=== PATIENT | female | born 1970 | race Two or more races ===

== ENCOUNTER 2024-07-22 17:09 | Emergency (ER) | payer MEDICARE, OTHER, MEDICAID ==
[~2024-07-22] VITALS: Ht 154.9 cm; Wt 62.5 kg
[2024-07-22 18:47] VITALS: BP 101/72; PULSE 80; RESP 18; TEMP 97.9; O2SAT 95
[2024-07-22] MEDS ORDERED: FAMC500T12 PO (19:14)
--- NOTE | 2024-07-22 19:14 | ED.PDOC ---
History of Present Illness(SKN HPI Comments 54 year old female presents to ER for wound check. Patient states she was tested for and diagnosed with "herpes to lips" 1.5 months ago and was prescribed valacyclovir that she has taken with improvement but reports that she still has one blister to her lower lip prompting her to come to ER for further evaluation. Notes that she does have an appointment with her PCP this upcoming Saturday with regards to her symptoms. She reports 5/10 pain localized to lower lip and denies exposure to STDs, noting she has not been sexually active in "10 years". Denies fever, body aches, chills, drainage, headache, fatigue or any further symptoms/complaints Chief Complaint: Rash Time Seen by MD: 18:07 Primary Care Provider: UNKNOWN History of Present Illness: Nurses Notes, Medications, Allergies Allergies: Coded Allergies: Penicillins (Verified Allergy, Unknown, 07/22/24) Sulfa Antibiotics (Verified Allergy, Unknown, 07/22/24) Home Meds Active Scripts Famciclovir (Famciclovir) 500 Mg Tab, 500 MG PO BID for 7 Days, #14 TAB 0 Refills Prov:VALENTINA LIM 07/22/24 Information Source: Patient Mode of Arrival: Ambulatory Past Medical History PAST MEDICAL HISTORY: Arthritis (RA), HTN Surgical History: Appendectomy Surgical History (Other): GASTRIC BYPASS PIER RUNNER History: No Pertinent PIER RUNNER History Family History Family History: Unknown Social History Smoker: Non-Smoker Alcohol: Denies ETOH Use Drugs: Denies Drug Use Lives In: Home Constitutional: denies: chills, diaphoresis, fatigue, fever, malaise, sweats, weakness, others EENTM: reports: others (As stated in HPI) Respiratory: denies: cough, hemoptysis, orthopnea, SOB at rest, shortness of breath, SOB with excertion, stridor, wheezing, others Cardiovascular: denies: chest pain, dizzy spells, diaphoresis, Dyspnea on exertion, edema, irregular heart beat, left arm pain, lightheadedness, palpitations, PND, syncope, others Gastrointestinal: denies: abdomen distended, abdominal pain, blood streaked bowels, constipated, diarrhea, dysphagia, difficulty swallowing, hematemesis, melena, nausea, poor appetite, poor fluid intake, rectal bleeding, rectal pain, vomiting, others Genitourinary: denies: abnormal vagina bleeding, burning, dyspareunia, dysuria, flank pain, frequency, hematuria, incontinence, pain, , vagina discharge, urgency, others Neurological: denies: dizziness, fainting, headache, left sided numbness, left sided weakness, numbness, paresthesia, pre-existing deficit, right sided numbness, right sided weakness, seizure, speech problems, tingling, tremors, weakness, others Musculoskeletal: denies: back pain, gout, joint pain, joint swelling, muscle pain, muscle stiffness, neck pain, others Integumetry: reports: others (As stated in HPI) Allergic/Immunocompromised: denies: Difficulty Healing, Frequent Infections, Hives, Itching, others Hematologic/Lymphatic: denies: anemia, blood clots, easy bleeding, easy bruising, swollen glands, others Endocrine: denies: excessive hunger, excessive sweating, excessive thirst, excessive urination, flushing, intolerance to cold, intolerance to heat, unexplained weight gain, unexplained weight loss, others Psychiatric: denies: anxiety, bipolar disorder, depression, hopeless, panic disorder, schizophrenia, sleepless, suicidal, others Physical Exam General Appearance: No Apparent Distress HEENT: Normal ENT Inspection, PERRL/EOMI, Pharynx Normal, TMs Normal, Other (1 cm tender umbilicated vesicle with minimal surrounding erythema noted to lower lip without drainage) Neck: Full Range of Motion, Non-Tender, Normal Respiratory: Chest Non-Tender, Lungs Clear, No Accessory Muscle Use, No Respiratory Distress, Normal Breath Sounds Cardiovascular: No Murmur, No Gallop, Regular Rate/Rhythm Breast Exam: Deferred Gastrointestinal: NOT DONE Genitalia: Deferred Pelvic: Deferred Rectal: Deferred Extremities: Normal capillary refill, Normal range of motion Neurologic: Alert, health and safety technician II-XII nml as Tested, No Motor Deficits, Normal Affect, Normal Mood, No Sensory Deficits Cerebellar Function: Normal Reflexes: Normal Skin: Dry, Warm Lymphatic: No Adenopathy Was a procedure done? Was a procedure done?: No Sedation Sedation?: No Differential Diagnosis (INTG) Differential Diagnosis: Abscess Differential Diagnosis: Cellulitis, Puncture Wound X-Ray, Labs, Meds, VS Vital Signs Date Time Temp Pulse Resp B/P (MAP) Pulse Ox O2 Delivery O2 Flow Rate FiO2 07/22/24 18:47 97.9 80 18 101/72 (82) 95 97.9 07/22/24 18:47 80 18 95 Room Air 07/22/24 17:30 98.6 91 18 105/75 (85) 98 98.6 Patient well-appearing and in no distress during ER visit/prior to discharge Advised to follow up with PCP in 1-2 days Patient verbalized understanding and agreeable with current plan of care Advised to return to ER immediately if symptoms worsen Time of 1ST Reevaluation: 18:54 Reevaluation 1ST: N/A Patient Education/Counseling: Diagnosis, Treatment, Prognosis, Need For Follow Up Family Education/Counseling: No Family Present Departure 1 Departure Time of Disposition: 19:12 Impression: Primary Impression: Herpes labialis Disposition: 01 HOME / SELF CARE / HOMELESS Condition: Stable e-Prescriptions Famciclovir (Famciclovir) 500 Mg Tab 500 MG PO BID for 7 Days, #14 TAB 0 Refills Prov: VALENTINA LIM 07/22/24 Discharged With: Self Critical Care Note Critical Care Time?: No Stability Stability form required: No Heart Score Heart Score: Heart Score Response (Comments) Value History N/A 0 EKG N/A 0 Age N/A 0 Risk Factors N/A 0 Troponin N/A 0 Total 0 VALENTINA LIM July 22, 2024 19:14
== END 2024-07-22 19:22 | disposition home or self-care (01) ==
LOC: ER 17:09
DX: B00.1 Herpesviral vesicular dermatitis (principal); I10 Essential (primary) hypertension; M06.9 Rheumatoid arthritis, unspecified; Z90.49 Acquired absence of other specified parts of digestive tract; Z98.84 Bariatric surgery status; Z88.2 Allergy status to sulfonamides; Z88.0 Allergy status to penicillin; Z79.624 Long term (current) use of inhibitors of nucleotide synthesis; Z79.899 Other long term (current) drug therapy

== ENCOUNTER 2024-07-24 12:06 | Emergency (ER) | payer MEDICARE, OTHER, MEDICAID ==
[~2024-07-24] VITALS: Ht 154.9 cm; Wt 62.2 kg
[~2024-07-24 12:06] MED LIST: FAMC500T12 PO
--- NOTE | 2024-07-24 14:28 | ED.PDOC ---
History of Present Illness HPI Comments 54F presents to the ER w/ prior MHx of Arthritis, HTN;SHx of Appendectomy, Ablation, Gastric bypass and the c/c of Medication refill. Pt reports on being in the ER on Saturday of 07/22/24 and needs the medication to be changed. The medication given was an antiviral medication but the pt's insurance does not cover the pt's medication and needs it to be changed. Denies chills, fever, N/V/D, SOB, CP. Denies any other associated symptom's, modifiers, or recent injuries or sick contact at this time. Chief Complaint: Wound Check Time Seen by MD: 13:20 Primary Care Provider: UNKNOWN Reviewed Notes: Nurses Notes, Medications, Allergies Allergies: Coded Allergies: Penicillins (Verified Allergy, Unknown, 07/22/24) Sulfa Antibiotics (Verified Allergy, Unknown, 07/22/24) Home Meds Active Scripts Acyclovir Topical (Zovirax) 5 % Cre, 1 APPLIC TOP 5XD for 5 Days, #5 GRAMS 1 Refill Prov:VERONICA PASTRANA MD 07/24/24 Acyclovir (ZOVIRAX TABLET) 400 Mg Tb, 1 TAB PO QID for 10 Days, #40 TAB 3 Refills Prov:VERONICA PASTRANA MD 07/24/24 Famciclovir (Famciclovir) 500 Mg Tab, 500 MG PO BID for 7 Days, #14 TAB 0 Refills Prov:VALENTINA LIM 07/22/24 Information Source: Patient Mode of Arrival: Ambulatory Severity: Moderate Timing: Days Duration: Since onset, Days Prehospital treatment: None Context: Insurance don't cover medication prescribed Past Medical History PAST MEDICAL HISTORY: Arthritis, HTN Surgical History: Appendectomy Surgical History (Other): Gastric Bypass and Ablation BLANKET WASHER History: No Pertinent BLANKET WASHER History Family History Family History: Reviewed,noncontributory to illness, Unknown Social History Smoker: Cigarettes Alcohol: Denies ETOH Use Drugs: Denies Drug Use Lives In: Home Constitutional: denies: chills, diaphoresis, fatigue, fever, malaise, sweats, weakness, others EENTM: denies: blurred vision, double vision, ear bleeding, ear discharge, ear drainage, ear pain, ear ringing, eye pain, eye redness, hearing loss, mouth pain, mouth swelling, nasal discharge, nose bleeding, nose congestion, nose pain, photophobia, tearing, throat pain, throat swelling, voice changes, others Respiratory: denies: cough, hemoptysis, orthopnea, SOB at rest, shortness of breath, SOB with excertion, stridor, wheezing, others Cardiovascular: denies: chest pain, dizzy spells, diaphoresis, Dyspnea on exertion, edema, irregular heart beat, left arm pain, lightheadedness, palpitations, PND, syncope, others Gastrointestinal: denies: abdomen distended, abdominal pain, blood streaked bowels, constipated, diarrhea, dysphagia, difficulty swallowing, hematemesis, melena, nausea, poor appetite, poor fluid intake, rectal bleeding, rectal pain, vomiting, others Genitourinary: denies: abnormal vagina bleeding, burning, dyspareunia, dysuria, flank pain, frequency, hematuria, incontinence, pain, , vagina discharge, urgency, others Neurological: denies: dizziness, fainting, headache, left sided numbness, left sided weakness, numbness, paresthesia, pre-existing deficit, right sided numbness, right sided weakness, seizure, speech problems, tingling, tremors, weakness, others Musculoskeletal: denies: back pain, gout, joint pain, joint swelling, muscle pain, muscle stiffness, neck pain, others Integumetry: denies: bruises, change in color, change in hair/nails, dryness, laceration, lesions, lumps, rash, wounds, others Allergic/Immunocompromised: denies: Difficulty Healing, Frequent Infections, Hives, Itching, others Hematologic/Lymphatic: denies: anemia, blood clots, easy bleeding, easy bruising, swollen glands, others Endocrine: denies: excessive hunger, excessive sweating, excessive thirst, excessive urination, flushing, intolerance to cold, intolerance to heat, unexpl ained weight gain, unexplained weight loss, others Psychiatric: denies: anxiety, bipolar disorder, depression, hopeless, panic disorder, schizophrenia, sleepless, suicidal, others All Other Systems: Reviewed and Negative Physical Exam General Appearance: Mild Distress, Normal HEENT: Normal ENT Inspection, PERRL/EOMI, Pharynx Normal, TMs Normal, Other (Vesicular skin lesion to the lower lip persistent for the past three months) Neck: Full Range of Motion, Non-Tender, Normal, Normal Inspection Respiratory: Chest Non-Tender, Lungs Clear, No Accessory Muscle Use, No Respiratory Distress, Normal Breath Sounds Cardiovascular: No Edema, No JVD, No Murmur, No Gallop, Normal Peripheral Pulses, Regular Rate/Rhythm Breast Exam: Deferred Gastrointestinal: No Organomegaly, Non Tender, No Pulsatile Mass, Normal Bowel Sounds, Soft Genitalia: Deferred Pelvic: Deferred Rectal: Deferred Extremities: No calf tenderness, Normal capillary refill, Normal inspection, Normal range of motion, Non-tender, No pedal edema Musculoskeletal : Apperance: Normal Neurologic: Alert, inside horticultural specialty grower II-XII nml as Tested, No Motor Deficits, Normal Affect, Normal Mood, No Sensory Deficits Cerebellar Function: Normal Reflexes: Normal Skin: Dry, Normal Color, Warm Peripheral Pulses: 1+ carotid (R), 1+ carotid (L) Lymphatic: No Adenopathy Was a procedure done? Was a procedure done?: No Differential Dx Considerations may include: Herpetic lesion to the lower lip X-Ray, Labs, Meds, VS Vital Signs Date Time Temp Pulse Resp B/P (MAP) Pulse Ox O2 Delivery O2 Flow Rate FiO2 07/24/24 12:33 98.1 84 18 126/81 (96) 98 98.1 X-Ray, Labs, Meds, VS Comment 54-year-old female presented to the urgent care complaining of skin lesion to the lower lip and persistent for the past three months has been treated 3 times with no relief The 2nd time the patient received a medication was not covered by the insurance Today she is here to get the adequate medication Time of 1ST Reevaluation: 13:50 Reevaluation 1ST: Unchanged Time of 2ND Reevaluation: 14:53 Reevaluation 2ND: Unchanged Consultation: PCP Patient Education/Counseling: Diagnosis, Treatment, Prognosis, Need For Follow Up Family Education/Counseling: Diagnosis, Treatment, Prognosis, Need For Follow Up, No Family Present Departure 1 Departure Time of Disposition: 14:54 Impression: Primary Impression: Herpes labialis Disposition: 01 HOME / SELF CARE / HOMELESS Condition: Fair Additional Instructions: Apply alcohol several times a day and follow up with your PCP e-Prescriptions Acyclovir Topical (Zovirax) 5 % Cre 1 APPLIC TOP 5XD for 5 Days, #5 GRAMS 1 Refill Prov: VERONICA PASTRANA MD 07/24/24 Acyclovir (ZOVIRAX TABLET) 400 Mg Tb 1 TAB PO QID for 10 Days, #40 TAB 3 Refills Prov: VERONICA PASTRANA MD 07/24/24 Discharged With: Self Critical Care Note Critical Care Time?: No Stability Stability form required: No Heart Score Heart Score: Heart Score Response (Comments) Value History N/A 0 EKG N/A 0 Age 45-64 1 Risk Factors 1 or 2 risk factors 1 Troponin N/A 0 Total 2 I personally scribed for VERONICA PASTRANA MD ([email or web address]) on 07/24/24 at 14:28. Electronically submitted by Olegario Rene ([email or web address]). VERONICA PASTRANA MD July 24, 2024 14:28
[2024-07-24] MEDS ORDERED: ACYC5CRE4 TOP (14:56)
[2024-07-24] MEDS ORDERED: ACYC400T16 PO (14:56)
[2024-07-24 15:07] VITALS: BP 138/83; PULSE 77; RESP 18; TEMP 98.9; O2SAT 97
== END 2024-07-24 15:11 | disposition home or self-care (01) ==
LOC: ER 12:06
DX: B00.1 Herpesviral vesicular dermatitis (principal); I10 Essential (primary) hypertension; M19.90 Unspecified osteoarthritis, unspecified site; F17.210 Nicotine dependence, cigarettes, uncomplicated; Z76.0 Encounter for issue of repeat prescription; Z90.49 Acquired absence of other specified parts of digestive tract; Z98.84 Bariatric surgery status; Z88.0 Allergy status to penicillin; Z88.2 Allergy status to sulfonamides